=== PATIENT | female | born 1955 | race African-American/Black ===

== ENCOUNTER 2017-06-05 07:26 | Day surgery (SDC) | payer OTHER, BC ==
[2017-05-29 10:17] VITALS: BMI 29.4
[2017-06-05 10:37] VITALS: BP 130/63; PULSE 67; TEMP 98
--- NOTE | 2017-06-08 15:43 | PATH ---
Surgical Pathology Report Patient Name: DERIAN IZAGUIRRE [facility]. Rec. #: [id number] /Age/Gender: 1955 (Age: 62) / F Account: [id number] Location: [facility] Taken: 06/05/2017 Received: 06/05/2017 Reported: 06/08/2017 Physicians: Amaya Khan M.D. Specimen(s) Received A: BX DUODENUM B: BX ANTRUM C: BX BODY D: BX GE JUNCTION E: BX BODY POLYP Clinical History Preoperative diagnosis: GERD Postoperative diagnosis: Hiatal hernia, GERD, gastric polyp Final Diagnosis A. DUODENUM, BIOPSY: DUODENAL MUCOSA WITH NO PATHOLOGIC FINDINGS. B. ANTRUM, BIOPSY: MODERATE CHRONIC GASTRITIS. IMMUNOSTAIN IS NEGATIVE FOR H. PYLORI ORGANISMS. C. BODY, BIOPSY: MILD CHRONIC GASTRITIS. IMMUNOSTAIN IS NEGATIVE FOR H. PYLORI ORGANISMS. D. GE JUNCTION, BIOPSY: GASTRIC CARDIA-TYPE MUCOSA SHOWING MODERATE CHRONIC INFLAMMATION. SCANT ESOPHAGEAL (SQUAMOUS) MUCOSA WITH NO PATHOLOGIC FINDINGS. NEGATIVE FOR INTESTINAL METAPLASIA. E. BODY, POLYP, BIOPSY: POLYPOID GASTRIC BODY-TYPE MUCOSA SHOWING MODERATE CHRONIC GASTRITIS. IMMUNOSTAIN IS NEGATIVE H PYLORI ORGANISMS. Electronically Signed Wandy Velez M.D. Gross Description A. Received in formalin, labeled "duodenum" are 4 vanegas, irregular portions of soft tissue ranging from 0.2-0.3 cm. in greatest dimension. The specimens are submitted in toto in one cassette. B. Received in formalin, labeled "antrum" is a vanegas, irregular portion of soft tissue measuring 0.7 cm. in greatest dimension. The specimen is submitted in toto in one cassette. C. Received in formalin, labeled "body" are 2 vanegas, irregular portions of soft tissue measuring 0.3 and 0.4 cm. in greatest dimension. The specimens are submitted in toto in one cassette. D. Received in formalin, labeled "GE junction" are 2 vanegas, irregular portions of soft tissue measuring 0.1 and 0.3 cm. in greatest dimension. The specimens are submitted in toto in one cassette. E. Received in formalin, labeled "body polyp" is a vanegas, irregular portion of soft tissue measuring 0.6 cm. in greatest dimension. The specimen is submitted in toto in one cassette. /06/05/201706/05/2017
== END 2017-06-05 10:39 | disposition home or self-care (01) ==
LOC: FASU-ENDO 07:26
PROVIDERS: ATTEND Internal Medicine
PROC: 0DB68ZX Excision of Stomach, Via Natural or Artificial Opening Endoscopic, Diagnostic (ICD-10-PCS; 2017-06-05)
PROC: 0DB48ZX Excision of Esophagogastric Junction, Via Natural or Artificial Opening Endoscopic, Diagnostic (ICD-10-PCS; 2017-06-05)
PROC: 0DB98ZX Excision of Duodenum, Via Natural or Artificial Opening Endoscopic, Diagnostic (ICD-10-PCS; principal; 2017-06-05 08:56)
DX: K31.7 Polyp of stomach and duodenum (principal); K44.9 Diaphragmatic hernia without obstruction or gangrene; K21.9 Gastro-esophageal reflux disease without esophagitis; K29.50 Unspecified chronic gastritis without bleeding
CPT/HCPCS: 88305-TC; 88342-TC

== ENCOUNTER 2019-05-06 07:40 | Day surgery (SDC) | payer OTHER, BC ==
[2019-05-03 14:28] VITALS: BMI 27.7
[2019-05-06] MEDS ORDERED: PROPOFOL 20 ML ONE ×2 (07:42)
[2019-05-06] MEDS ORDERED: LIDOCAINE HCL/PF 2% SDV 5ML VIAL ONE (07:42)
[2019-05-06 08:21] VITALS: TEMP 98.6
[2019-05-06 10:12] VITALS: BP 132/54; PULSE 70
--- NOTE | 2019-05-10 14:39 | PATH ---
Surgical Pathology Report Patient Name: DERIAN IZAGUIRRE [facility]. Rec. #: [id number] /Age/Gender: 1955 (Age: 64) / F Account: [id number] Location: [facility] Taken: 05/06/2019 Received: 05/06/2019 Reported: 05/10/2019 Physicians: Amaya Khan M.D. Specimen(s) Received GE JUNCTION Clinical History GERD Postoperative diagnosis: Esophagitis Final Diagnosis GE JUNCTION, BIOPSY: ESOPHAGOGASTRIC JUNCTIONAL( SQUAMOCOLUMNAR) MUCOSA SHOWING MODERATE CHRONIC ACTIVE INFLAMMATION. NEGATIVE FOR INTESTINAL METAPLASIA. Electronically Signed Wandy Velez M.D. Gross Description Received in formalin, labeled "biopsy GE junction" are 2 vanegas, irregular portions of soft tissue measuring 0.3 and 0.5 cm. in greatest dimension. The specimens are submitted in toto in one cassette. 05/09/201905/09/2019
== END 2019-05-06 09:50 | disposition home or self-care (01) ==
LOC: FASU-ENDO 07:40
PROVIDERS: ATTEND Internal Medicine
PROC: 0DB48ZX Excision of Esophagogastric Junction, Via Natural or Artificial Opening Endoscopic, Diagnostic (ICD-10-PCS; principal; 2019-05-06 08:38)
DX: K20.8 Other esophagitis (principal); K44.9 Diaphragmatic hernia without obstruction or gangrene; R13.10 Dysphagia, unspecified
CPT/HCPCS: 88305-TC

== ENCOUNTER 2022-07-02 04:27 | Day surgery (SDC) | payer OTHER, BC ==
[2022-07-01 17:01] VITALS: BMI 21.8
[2022-07-02 10:54] VITALS: TEMP 97.8
[2022-07-02 13:05] VITALS: BP 173/63; PULSE 71; RESP 20
== END 2022-07-02 11:00 | disposition home or self-care (01) ==
LOC: JASU-ENDO 04:27
PROVIDERS: ATTEND Internal Medicine
PROC: 0DJD8ZZ Inspection of Lower Intestinal Tract, Via Natural or Artificial Opening Endoscopic (ICD-10-PCS; principal; 2022-07-02 08:30)
DX: K59.01 Slow transit constipation (principal); D50.9 Iron deficiency anemia, unspecified; K63.89 Other specified diseases of intestine
CPT/HCPCS: 88305-TC; 88312-TC; 88342-TC

== ENCOUNTER 2023-07-03 04:29 | Day surgery (SDC) | payer OTHER, BC ==
[2023-06-29 12:40] VITALS: BMI 22.4
[2023-07-03 09:25] VITALS: TEMP 98
[2023-07-03 09:44] VITALS: BP 152/68; PULSE 73; RESP 20
== END 2023-07-03 09:45 | disposition home or self-care (01) ==
LOC: JASU-ENDO 04:29
PROVIDERS: ATTEND Student in an Organized Health Care Education/Training Program
PROC: 0DBK8ZX Excision of Ascending Colon, Via Natural or Artificial Opening Endoscopic, Diagnostic (ICD-10-PCS; principal; 2023-07-03 08:30)
DX: Z12.11 Encounter for screening for malignant neoplasm of colon (principal); D12.2 Benign neoplasm of ascending colon; K59.01 Slow transit constipation
CPT/HCPCS: 88305-TC

== ENCOUNTER 2024-03-01 08:40 | Day surgery (SDC) | payer OTHER, BC ==
[2024-02-25 12:09] VITALS: BMI 23.8
[2024-03-01 09:30] VITALS: RESP 16
[2024-03-01] MEDS ORDERED: LIDOCAINE HCL/PF 2% SDV 5ML VIAL ONE (09:33)
[2024-03-01] MEDS ORDERED: PROPOFOL 80 ML ONE (09:33)
[2024-03-01 11:52] VITALS: BP 161/55; PULSE 70; TEMP 96.6
== END 2024-03-01 11:15 | disposition home or self-care (01) ==
LOC: FASU-ENDO 08:40
PROVIDERS: ATTEND Internal Medicine Gastroenterology
PROC: 0DBL8ZX Excision of Transverse Colon, Via Natural or Artificial Opening Endoscopic, Diagnostic (ICD-10-PCS; 2024-03-01)
PROC: 0DBM8ZX Excision of Descending Colon, Via Natural or Artificial Opening Endoscopic, Diagnostic (ICD-10-PCS; 2024-03-01)
PROC: 0DB98ZX Excision of Duodenum, Via Natural or Artificial Opening Endoscopic, Diagnostic (ICD-10-PCS; 2024-03-01)
PROC: 0DB68ZX Excision of Stomach, Via Natural or Artificial Opening Endoscopic, Diagnostic (ICD-10-PCS; 2024-03-01)
PROC: 0DB48ZX Excision of Esophagogastric Junction, Via Natural or Artificial Opening Endoscopic, Diagnostic (ICD-10-PCS; 2024-03-01)
PROC: 0DBK8ZX Excision of Ascending Colon, Via Natural or Artificial Opening Endoscopic, Diagnostic (ICD-10-PCS; principal; 2024-03-01 09:45)
DX: Z12.11 Encounter for screening for malignant neoplasm of colon (principal); K22.10 Ulcer of esophagus without bleeding; K29.50 Unspecified chronic gastritis without bleeding
CPT/HCPCS: 88305-TC; 88312-TC; 88342-TC